=== PATIENT | female | born 1985 | race African-American/Black ===

== ENCOUNTER 2021-07-16 07:17 | Inpatient (IN) | payer OTHER ==
[2021-07-16] VITALS (15 sets, daily range): BP systolic 94–159; BP diastolic 38–86; PULSE 74–103; TEMP 98.1–98.4
[~2021-07-16] VITALS: Ht 165.1 cm; Wt 111.4 kg
[2021-07-16] MEDS ORDERED: PRENATAL TABLET PO (09:58)
[2021-07-16] MEDS ORDERED: PEPCID 20MG TAB20 MG PO (09:58)
[2021-07-16] MEDS ORDERED: PROCARDIA XL90 MG PO ×2 (09:58→10:33)
[2021-07-16] MEDS ORDERED: TYLENOL PM EXTR1 TA1 PO (09:59)
[2021-07-16] MEDS ORDERED: STOOL SOFTENER100 M2 PO (09:59)
[2021-07-16 10:07] LABS: BASO % 0.3 % (0.0-2.0); EOS % 0.5 % (0-4.0); GRAN # 5.1 (1.4-6.5); GRAN % 64.8 % (42.2-75.2); HEMATOCRIT 39.8 % (37.0-47.0); HEMOGLOBIN 13.4 g/dl (12.5-16.0); LYMPH # 2.1 (1.2-3.4); LYMPH % 26.5 % (20.0-51.0); MEAN CELL VOLUME 91 fl (80.0-100.0); MEAN CORPUSCULAR HEMOGLOBIN 31 pg (27.0-31.0); MEAN CORPUSCULAR HGB CONC 34 g/dl (33.0-37.0); MEAN PLATELET VOLUME 13.3 fl (7.4-10.4); MONO # 0.6 (0.1-0.6); MONO % 7.6 % (1.7-9.3); PLATELET COUNT 155 K/mm3 (130-400); RED BLOOD COUNT 4.38 M/mm3 (4.10-5.30); REDCELL DISTRIBUTION WIDTH-CV 14.4 % (11.5-14.5)
[2021-07-16] MEDS ORDERED: MOTRIN 800800 MG/TAB PO (10:32)
[2021-07-16] MEDS ORDERED: PERCOCET 325 MG1 TA2 PO (10:33)
[2021-07-17 01:15] VITALS: BP 153/93; PULSE 81; TEMP 97.7
[2021-07-17 05:00] VITALS: BP 140/91; PULSE 90; TEMP 97.9
[2021-07-17 07:25] VITALS: BP 139/79; PULSE 88; TEMP 97.5
--- NOTE | 2021-07-17 09:09 | NUR ---
Initial visit attempt; Family resting, Childcare Director left card of congratulations and God's blessings for the of their son and information regarding the availability of spiritual care at our hospital.
[2021-07-17 11:45] VITALS: BP 137/81; PULSE 93; TEMP 97
[2021-07-17 16:35] VITALS: BP 130/70; PULSE 93; TEMP 97.6
[2021-07-17 20:00] VITALS: BP 119/66; PULSE 89; TEMP 97.9
[2021-07-18 06:45] VITALS: BP 125/84; PULSE 103; TEMP 98.1
== END 2021-07-18 15:40 | disposition home or self-care (01) | DRG 787 ==
LOC: OB 07:17
PROVIDERS: ADMIT Obstetrics & Gynecology
PROC: 10D00Z1 Extraction of Products of Conception, Low, Open Approach (ICD-10-PCS; principal; 2021-07-16)
DX: O34.211 Maternal care for low transverse scar from previous cesarean delivery (principal); O10.92 Unspecified pre-existing hypertension complicating childbirth; O99.824 Streptococcus B carrier state complicating childbirth; O99.62 Diseases of the digestive system complicating childbirth; O99.344 Other mental disorders complicating childbirth; F32.9 Major depressive disorder, single episode, unspecified; O99.284 Endocrine, nutritional and metabolic diseases complicating childbirth; O99.214 Obesity complicating childbirth; E66.9 Obesity, unspecified; K21.9 Gastro-esophageal reflux disease without esophagitis; F43.10 Post-traumatic stress disorder, unspecified; E03.9 Hypothyroidism, unspecified; Z3A.38 38 weeks gestation of pregnancy; Z37.0 Single live birth
CPT/HCPCS: J0690; J1885; J2175; J2370; J2405; J2590; J7120

== ENCOUNTER 2022-03-05 09:44 | Outpatient (RCR) | payer OTHER ==
[~2022-03-05 09:44] MED LIST: MOTRIN 800800 MG/TAB PO; PEPCID 20MG TAB20 MG PO; PERCOCET 325 MG1 TA2 PO; PRENATAL TABLET PO; PROCARDIA XL90 MG PO; STOOL SOFTENER100 M2 PO; TYLENOL PM EXTR1 TA1 PO
== END 2022-03-08 | disposition home or self-care (01) ==
LOC: WSPT
DX: M54.50 Low back pain, unspecified (principal)

== ENCOUNTER 2022-03-21 15:45 | Outpatient (RCR) | payer OTHER | END 2022-04-08 | disposition still patient (30) | LOC: WSC | DX: M54.50 Low back pain, unspecified (principal) ==

== ENCOUNTER 2022-06-05 09:45 | Outpatient (RCR) | payer OTHER | END 2022-06-08 | disposition home or self-care (01) | LOC: WSC | DX: M25.519 Pain in unspecified shoulder (principal); M54.9 Dorsalgia, unspecified ==

== ENCOUNTER 2022-07-07 15:45 | Outpatient (RCR) | payer OTHER | END 2022-07-09 | disposition home or self-care (01) | LOC: WSC | DX: M25.519 Pain in unspecified shoulder (principal) ==

== ENCOUNTER 2022-07-16 07:53 | Outpatient (RCR) | payer OTHER | END 2022-07-21 13:13 | disposition home or self-care (01) | LOC: WSC 07:53 | DX: M25.519 Pain in unspecified shoulder (principal) ==